=== PATIENT | female | born 1965 | race Caucasian/White ===

== ENCOUNTER → 2017-03-09 | Outpatient (CLI) | payer BC ==
--- NOTE | 2017-03-09 13:20 | WWHP ---
DATE OF SERVICE: 03/09/17 CHIEF COMPLAINT: The patient is here for her routine gynecological exam and mammogram. HISTORY OF PRESENT ILLNESS: This is a 51-year-old G0, with an LMP of 1998. The patient is status post HANNAH/BSO in 2002 for benign reasons. She is without gynecologic complaints. PAST MEDICAL HISTORY: Elevated cholesterol and hypothyroidism. Medications: 1. Levothyroxine 150 mcg daily. 2. Atorvastatin 10 mg daily. ALLERGIES: No known drug allergies. PAST SURGICAL HISTORY: Colonoscopy in 2016. Knee surgery in 2003. Right shoulder fibroma removed in 2002. HANNAH/BSO by myself in 2002, laparoscopy in 1993, ganglion cyst removed from the right hand in 1990, lipoma removed from the back in 1991. Benign breast cyst removed on the right side in 1984. PAST LIFTER DRIVER HISTORY: She has history of premature ovarian failure in 1998 status post HANNAH/BSO for uterine fibroids. She has no history of STD. SOCIAL HISTORY: She denies tobacco and drug use and has 0 to 2 alcoholic drinks per month. 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 She is and is not seeing anybody and is not sexually active. FAMILY HISTORY: Unchanged from the 2016 H&P. SOCIAL HISTORY: She denies tobacco and drug use and has 0 to 2 alcohol drinks per month. She is a and is not seeing anybody at this time. 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 REVIEW OF SYSTEMS: She has gained about 23 pounds after losing about this much weight the year prior. She denies respiratory, cardiac or GI problems. PHYSICAL EXAM: Blood pressure 138/67. Height 5 feet 7 inches. Weight 233 pounds. Temperature 96.7. Pulse 63. This is a well developed, heavyset white female who is alert and oriented times three in no acute distress. HEENT : is within normal limits. Neck is supple without mass or thyromegaly. Chest and lungs clear to auscultation. Heart is regular rate and rhythm. Breasts: Without mass or discharge. Axillary exam is negative for adenopathy. Back negative for CVA tenderness. Abdomen is soft and nontender without palpable masses. Pelvic exam, normal external genitalia with minimal atrophy. Vagina appears normal without significant atrophy. There is no evidence of prolapsed. Bimanual exam negative for masses or tenderness. Rectal vaginal exam negative for mass or tenderness. Occult blood testing was deferred since she just recently had a colonoscopy which was negative. Extremities nontender. IMPRESSION: A 51 year old menopausal female status post HANNAH/BSO for benign reasons with normal gynecological exam. PLAN: 1. Pap smears have been discomfort. 2. Self breast examination was discussed with the patient. 3. Mammogram will be done today. 4. Osteoporosis prevention was discussed. 5. She will return in one year. MOR
--- NOTE | 2017-03-10 08:31 | MM ---
Reason for exam: screening (asymptomatic). Last mammogram was performed 1 year ago. History: Patient is postmenopausal and is nulliparous. Family history of breast cancer in maternal aunt at age 75. Benign excisional biopsy of the right breast, 1979. Took estrogen for 10 years beginning at age 34. Physical Findings: A clinical breast exam by your physician is recommended on an annual basis and results should be correlated with mammographic findings. MG 3D Screening Mammo W/Cad Bilateral CC and MLO view(s) were taken. Prior study comparison: February 25, 2016, bilateral MG 3d screening mammo w/cad. February 19, 2015, bilateral MG screening mammo w CAD. The breast tissue is heterogeneously dense. This may lower the sensitivity of mammography. Nodular density upper inner right breast, 7.9cm from nipple. This finding is changed when compared with previous exams. ASSESSMENT: Incomplete: need additional imaging evaluation, BI-RAD 0 RECOMMENDATION: Special view mammogram of the right breast. If lesion persists on supplemental views, image directed ultrasound is recommended. [facility] will attempt to contact patient to return for supplemental views and ultrasound if indicated.
== END | disposition home or self-care (01) ==
LOC: WWCWWP 09:51
PROVIDERS: ATTEND Obstetrics & Gynecology
DX: Z12.31 Encounter for screening mammogram for malignant neoplasm of breast (principal)
CPT/HCPCS: 77063; G0202

== ENCOUNTER → 2017-03-11 | Outpatient (CLI) | payer BC ==
--- NOTE | 2017-03-11 09:25 | MM ---
Reason for exam: additional evaluation requested from abnormal screening. Last mammogram was performed less than 1 month ago. History: Patient is postmenopausal and is nulliparous. Family history of breast cancer in maternal aunt at age 75. Benign excisional biopsy of the right breast, 1979. Took estrogen for 10 years beginning at age 34. Physical Findings: Nurse did not find any significant physical abnormalities on exam. MG 3D Work Up W/Cad RT LM, spot compression MLO, and spot compression CC view(s) were taken of the right breast. Prior study comparison: March 09, 2017, bilateral MG 3d screening mammo w/cad. February 25, 2016, bilateral MG 3d screening mammo w/cad. February 19, 2015, bilateral MG screening mammo w CAD. January 28, 2012, CAD bilateral diagnostic mammogram. May 19, 2011, bilateral digital screening mammo w/CAD. The breast tissue is heterogeneously dense. This may lower the sensitivity of mammography. Focal asymmetry central inner right breast, stable retrospectively from priors . These results were verbally communicated with the patient and result sheet given to the patient on 03/11/17. ASSESSMENT: Benign, BI-RAD 2 RECOMMENDATION: Return to routine screening mammogram schedule for both breasts.
== END | disposition home or self-care (01) ==
LOC: RADMAMWWP 07:56
PROVIDERS: ATTEND Obstetrics & Gynecology
DX: R92.8 Other abnormal and inconclusive findings on diagnostic imaging of breast (principal)
CPT/HCPCS: G0206; G0279